=== PATIENT | male | born 1935 | race Caucasian/White ===

== ENCOUNTER 2022-01-09 09:02 | Outpatient (CLI) | payer MEDICARE, BC, SELFPAY ==
--- NOTE | ~2022-01-09 | CT_ITS ---
EXAMINATION: CT abdomen pelvis w con DATE: 01/09/2022 09:38 INDICATION: Prostate cancer restaging TECHNIQUE: Computed tomography (CT) of the abdomen and pelvis was performed with 100 CC Omnipaque 300 intravenous contrast. Automated exposure control and iterative reconstruction technique were employe d. Exam dose: 1293.31 mGy-cm total exam DLP. COMPARISON: 02/23/2008 PET/CT scan FINDINGS: There is interstitial soft tissue thickening involving preferentially the peripheral lung z ones suggesting usual interstitial pneumonia interstitial fibrosis. Heart size is within normal range . No pericardial or pleural effusion. (6 mm hypoattenuating lesion of the right hepatic lobe (series 3 image 61); this too small to definit ively characterize but statistically most likely a small hepatic cyst. The liver is otherwise unremar kable. The gallbladder appears normal. No pericholecystic fluid or fat stranding. No bile duct or burks creatic duct dilatation. Minimal pancreatic calcification suggesting mild chronic pancreatitis. Normal morphology of the adrenal glands. Indeterminate hypoenhancing 12 mm lesion of the posterior mid right kidney. 3.7 mm nonobstructing upper pole right renal calculus. 3.5 mm and 1.7 mm nonobstructing mid left renal calculi. Approximately 8 mm exophytic medial lower pole probable cyst. No ureteral calculus or hydroureteronephrosis. The urinary bladder is unremarkable. Status post prostatectomy. Moderately prominent bilateral fat-containing inguinal hernias Right obturator muscle lipoma is suggested. Normal appendix. There are numerous diverticula of the sigmoid and descending colon; no CT evidence o f diverticulitis. No bowel obstruction, bowel wall thickening, pneumatosis or intraperitoneal free ai r. Normal caliber and atherosclerotic calcification of the abdominal aorta, iliac arteries. No abdominal aortic aneurysm. No intraperitoneal or retroperitoneal or pelvic mass lesion or adenopathy or ascite s is noted. No suspicious osteolytic or osteoblastic lesions. There is degenerative change at the apophyseal joints in the mid and lower lumbar spine with associat ed grade 1 anterolisthesis at L4-5. There is moderately severe degenerative disc disease including va cuum phenomenon at L4-5 and moderate degenerative disc disease of the remaining lumbar and lumbosacra l spine. Diffuse idiopathic skeletal hyperostosis of the thoracic spine. There is a 12 mm osteosclerotic lesion at T9 vertebral body, suspicious for an osteosclerotic prostat e metastatic lesion. Consider radionuclide bone scan for confirmation. IMPRESSION: Status post prostatectomy; no recurrent or or abdominal or pelvic metastatic tumor is ev ident. There is a 12 mm osteosclerotic lesion of T9, suspicious for osseous chronic metastatic deposi t. Consider radionuclide bone scan. Indeterminate 12 mm hypoattenuating lesion of the right kidney; small hypernephroma is not excluded Minimal bilateral nonobstructive nephrolithiasis Diverticulosis of left colon; no CT evidence of diverticulitis Normal appendix Bilateral fat-containing inguinal hernias Reviewed, dictated and finalized at [facility]. Reviewed, dictated and finalized at [facility]. IMPRESSION: Status post prostatectomy; no recurrent or or abdominal or pelvic metastatic tumor is evident. There is a 12 mm osteosclerotic lesion of T9, susp icious for osseous chronic metastatic deposit. Consider radionuclide bone scan. Indeterminate 12 mm hypoattenuating lesion of the right kidney; small hyperneph carlos is not excluded Minimal bilateral nonobstructive nephrolithiasis Diverticulosis of left colon; no CT evidence of diverticulitis Normal appendix Bilateral fat-containing inguinal hernias
--- NOTE | ~2022-01-09 | NM_ITS ---
EXAMINATION: NM bone scan whole body DATE: 01/09/2022 14:06 INDICATION: Prostate cancer TECHNIQUE: 22.4 mCi Tc-99m HDP was administered intravenously. Delayed whole-body scintigrams were o btained. COMPARISON: Bone scan dated 12/04/2005, CT abdomen and pelvis dated 01/09/2022 and PET/CT dated 8 FINDINGS: There are foci of moderate increased uptake associated with enlarging sclerotic bone lesions at the l eft inferior aspect of the sternum, at the left posterior iliac spine and S2 vertebral body consisten t with metastatic prostate cancer. Asymmetric focus of moderate increased uptake in the region of the right sternoclavicular joint which could be due to asymmetric osteoarthritis or an additional metast atic lesion. No evident increased uptake associated with a small new sclerotic lesion at the left gre ater trochanter. 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 Add itional typical distribution of likely degenerative joint centered uptake at the bilateral acromiocla vicular and knee joints. There is increased uptake in the region of the right sacroiliac joint where there is relatively symmetric mild bilateral sacroiliac osteoarthritis. No evident associated sclerot ic lesion to suggest metastatic disease. Alternatively this could also represent some excreted activi ty in the distal left ureter. Mild uptake extending across the lower cervical spine likely related to degenerative disc disease. IMPRESSION: 1. Foci of increased uptake associated with chronic enlarging sclerotic lesions on CT at the sternum, left posterior iliac spine and S2 segment consistent with metastatic prostate cancer. Additional ind eterminate but suspicious lesion in the region of the right sternoclavicular joint. Reviewed, dictated and finalized at [facility]. IMPRESSION: 1. Foci of increased uptake associated with chronic enlarging sclerotic lesions on CT at the sternum, left posterior iliac spine and S2 segment consistent wit h metastatic prostate cancer. Additional indeterminate but suspicious lesion in the region of the right sternoclavicular joint.
[2022-01-09 11:54] LABS: Estimated Glomerular Filt Rate > 60
== END 2022-01-09 09:03 | disposition home or self-care (01) ==
PROVIDERS: PCP Internal Medicine; Visit Provider Urology
DX: C61 Malignant neoplasm of prostate (principal); M89.9 Disorder of bone, unspecified; Z90.79 Acquired absence of other genital organ(s); N28.9 Disorder of kidney and ureter, unspecified; N20.0 Calculus of kidney; K57.90 Diverticulosis of intestine, part unspecified, without perforation or abscess without bleeding; K40.20 Bilateral inguinal hernia, without obstruction or gangrene, not specified as recurrent
CPT/HCPCS: 36415; 74177; 78306; 82565; A9561; Q9967